=== PATIENT | male | born 1945 | race Caucasian/White ===

== ENCOUNTER 2025-05-19 12:44 | Outpatient (CLI) | payer MEDICARE ==
[2025-05-19 14:05] LABS: Estimated GFR - POC 77.0
[2025-05-19] MEDS ORDERED: Iopamidol 300 61% 100 ML VIAL FS ONE (14:20)
== END 2025-05-19 12:45 | disposition home or self-care (01) ==
LOC: CSHCT 12:44
PROVIDERS: ATTEND Surgery
DX: R10.33 Periumbilical pain (principal); N28.1 Cyst of kidney, acquired; N32.3 Diverticulum of bladder; K59.00 Constipation, unspecified
CPT/HCPCS: 36415; 74177; 82565; Q9967